=== PATIENT | male | born 1995 ===

== ENCOUNTER 2016-08-28 20:26 | Emergency (ER) | payer OTHER ==
[2016-08-28] MEDS ORDERED: ZYRTEC10 M7 PO (20:37)
== END 2016-08-28 21:02 ==
LOC: EDMED 20:26
DX: S93.411A Sprain of calcaneofibular ligament of right ankle, initial encounter (principal); Z87.891 Personal history of nicotine dependence; X50.1XXA Overexertion from prolonged static or awkward postures, initial encounter